=== PATIENT | male | born 2000 | race Caucasian/White ===

== ENCOUNTER 2021-03-10 21:28 | Emergency (ER) | payer SELFPAY ==
[~2021-03-10] VITALS: Ht 190.5 cm; Wt 70.3 kg
[2021-03-10] MEDS ORDERED: Cipro500 MG PO (22:43)
== END 2021-03-10 22:55 | disposition home or self-care (01) ==
LOC: ER 21:28
DX: S91.332A Puncture wound without foreign body, left foot, initial encounter (principal); Z23 Encounter for immunization; W45.0XXA Nail entering through skin, initial encounter
CPT/HCPCS: 90471; 90714; 99282-25; A9270